=== PATIENT | female | born 1960 | race Caucasian/White ===

== ENCOUNTER → 2016-08-04 | Outpatient (CLI) | payer BC | END | disposition home or self-care (01) | LOC: RAD.S 07:55 | DX: R10.9 Unspecified abdominal pain (principal); R63.4 Abnormal weight loss; K76.0 Fatty (change of) liver, not elsewhere classified; M47.896 Other spondylosis, lumbar region ==

== ENCOUNTER → 2016-11-24 | Outpatient (CLI) | payer BC | END | disposition home or self-care (01) | LOC: RAD.S 08:00 | DX: R06.02 Shortness of breath (principal); R06.4 Hyperventilation; Z95.0 Presence of cardiac pacemaker ==